=== PATIENT | male | born 1995 | race African-American/Black ===

== ENCOUNTER 2025-02-16 16:40 | Emergency (ER) | payer OTHER, SELFPAY ==
[2025-02-16 16:40] VITALS: BP 134/90; PULSE 87; RESP 18; TEMP 36.9; O2SAT 96; BMI 28.8
--- NOTE | 2025-02-16 16:57 | DI.RAD.S_ITS ---
PROCEDURE: XR CHEST 2V INDICATIONS: Shortness of breath TECHNIQUE: 2 views of the chest were acquired. COMPARISON: None. FINDINGS: Surgical changes and devices: None. Lungs and pleura: Lungs are clear. No pleural effusions or pneumothorax. Mediastinum: Mediastinal contours are normal. Heart size is normal. Bones and chest wall: No suspicious bony abnormalities. Soft tissues appear unremarkable. IMPRESSION: No acute cardiopulmonary abnormality is seen. Dictated by: Afshin Gonzales M.D. on 02/16/2025 at 17:29 Approved by: Afshin Gonzales M.D. on 02/16/2025 at 17:30
--- NOTE | 2025-02-16 17:10 | ED.URI ---
HPI - URI/Sore Throat <Cindy Blue PA-C - Last Filed: 02/16/25 19:22> General Chief Complaint: Upper Respiratory Symptoms Stated Complaint: thinks they have pna Time Seen by Provider: 02/16/25 16:56 Source: patient Mode of arrival: Ambulatory History of Present Illness HPI Narrative: Koko Ward is a very pleasant 29-year-old male, active [employer], with a past medical history of nephrotic syndrome since Aug 2024 who presents to the emergency department for cough x 1.5 weeks. 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 He is concerned that he is pneumonia now. States that about 1-1/2 weeks ago he had some fevers/chills and developed an extremely wet productive cough. Since then the cough has become more dry but he has frequent coughing episodes and has had no more fevers. This weekend he went to [place] for his mom's birthday and reports that he was feeling extremely fatigued and dehydrated. Patient states that he always feels somewhat short of breath and fatigued since being diagnosed with nephrotic syndrome but it has been much worse this last week. Denies any abdominal pain, nausea, vomiting, diarrhea, dysuria, hematuria, sore throat, ear pain. He took no OTCs. States he is on multiple meds for his nephrotic syndrome including furosemide, unable to list remaining. Related Data Previous Rx's Medication Instructions Recorded azithromycin 250 mg tablet See Rx Instructions PO .COMPLEX #6 02/16/25 tabs benzonatate 200 mg capsule 200 mg PO BID-TID PRN cough #20 02/16/25 caps Allergies Allergy/AdvReac Type Severity Reaction Status Date / Time No Known Drug Allergies Allergy Verified 02/16/25 17:36 Review of Systems <Cindy Blue PA-C - Last Filed: 02/16/25 19:22> Review of Systems ROS Unobtainable: All systems reviewed & are unremarkable except as noted in HPI and below Exam <Cindy Blue PA-C - Last Filed: 02/16/25 19:22> Narrative Exam Narrative: GENERAL: 29 year old male appears stated age. Well-developed patient, tall athletic, in no acute distress. HEAD: Atraumatic. Normocephalic. EYES: No scleral icterus. No injection or drainage. ENT: Nose without bleeding, purulent drainage. Throat without erythema, tonsillar hypertrophy or exudate. Airway patent. NECK: Trachea midline. Cervical ROM intact. CARDIOVASCULAR: Regular rate and rhythm. RESPIRATORY: ?Nonlabored respirations. ?Speaking in clear, full sentences. ?Coarse inspiratory breath sounds in left lower lobe, no wheezing. EXTREMITIES: No gross LE edema. NEURO: AOx3. ?Clear speech. ?Moves all 4 extremities appropriately. SKIN: No rash or erythema of visible areas Initial Vital Signs Initial Vital Signs: Vital Signs Temperature 98.5 F 02/16/25 16:40 Pulse Rate 87 02/16/25 16:40 Respiratory Rate 18 02/16/25 16:40 Blood Pressure 134/90 02/16/25 16:40 Pulse Oximetry 96 02/16/25 16:40 Oxygen Delivery Method Room Air 02/16/25 16:40 <Sheree Oates DO - Last Filed: 02/17/25 08:11> Initial Vital Signs Initial Vital Signs: Vital Signs Temperature 98.5 F 02/16/25 16:40 Pulse Rate 87 02/16/25 16:40 Respiratory Rate 18 02/16/25 16:40 Blood Pressure 134/90 02/16/25 16:40 Pulse Oximetry 96 02/16/25 16:40 Oxygen Delivery Method Room Air 02/16/25 16:40 Course <Cindy Blue PA-C - Last Filed: 02/16/25 19:22> Orders Ordered: Discontinued Medications Benzonatate (Benzonatate 100 Mg Capsule) 200 mg PO NOW ONE Stop: 02/16/25 17:10 Last Admin: 02/16/25 17:36 Dose: 200 mg Documented By: DENIS Vital Signs Vital signs: Vital Signs - 8 hr 02/16/25 16:40 02/16/25 18:45 Temperature 98.5 F 97.3 F L Pulse Rate 87 81 Respiratory Rate 18 16 Blood Pressure 134/90 141/95 H Pulse Oximetry 96 99 Oxygen Delivery Method Room Air <DO Jenna Pulido Last Filed: 02/17/25 08:11> Orders Ordered: Discontinued Medications Benzonatate (Benzonatate 100 Mg Capsule) 200 mg PO NOW ONE Stop: 02/16/25 17:10 Last Admin: 02/16/25 17:36 Dose: 200 mg Documented By: RB Vital Signs Vital signs: Vital Signs - 8 hr 02/16/25 16:40 02/16/25 18:45 Temperature 98.5 F 97.3 F L Pulse Rate 87 81 Respiratory Rate 18 16 Blood Pressure 134/90 141/95 H Pulse Oximetry 96 99 Oxygen Delivery Method Room Air MDM - URI/Sore Throat <Cindy Blue PA-C - Last Filed: 02/16/25 19:22> Medical Records Medical records narrative: None available for review Lab Data Labs: Lab Results 02/16/25 Range/Units 17:12 SARS-CoV-2 (PCR) Negative (Negative) Influenza A (RT-PCR) Flu a negative (NEGATIVE) Influenza B (RT-PCR) Flu b negative (NEGATIVE) RSV (PCR) Negative (Negative) Imaging Data Chest x-ray: Radiologist's Impression: PROCEDURE: XR CHEST 2V INDICATIONS: Shortness of breath TECHNIQUE: 2 views of the chest were acquired. COMPARISON: None. FINDINGS: Surgical changes and devices: None. Lungs and pleura: Lungs are clear. No pleural effusions or pneumothorax. Mediastinum: Mediastinal contours are normal. Heart size is normal. Bones and chest wall: No suspicious bony abnormalities. Soft tissues appear unremarkable. IMPRESSION: No acute cardiopulmonary abnormality is seen. Dictated by: Afshin Gonzales M.D. on 02/16/2025 at 17:29 Approved by: Afshin Gonzales M.D. on 02/16/2025 at 17:30 [facility] Narrative Medical decision making narrative: 29-year-old male, active [employer], with a past medical history of nephrotic syndrome since Aug 2024 who presents to the emergency department for cough x 1.5 weeks. Differential diagnosis includes but is not limited to viral syndrome, pneumonia, bronchitis, pleural effusion, etc. On exam the patient is in no acute distress, nontoxic-appearing, all vital signs within normal limits. He is very well-appearing, there is some coarse inspiratory breath sounds in the left lower lobe. He has a history of nephrotic syndrome however states that he is regular labs and is not having any changes in his urination, no increased edema. We will proceed with two-view chest x-ray, viral swab, treat cough with benzonatate. Viral swab negative. Chest x-ray reveals no pneumonia at this time. However patient does have some coarse breath sounds in the left lower lobe and a history of nephrotic syndrome which we can see immune system. Given this information, I did have a shared decision-making conversation with the patient or I discussed prescribing him azithromycin for atypical pneumonia but I do not recommend starting it at this time. I recommended that of the patient's symptoms improve he should hold off on antibiotics and assume this is viral in nature but if his symptoms do not get better or worsens next 48 hours should initiate the antibiotics. Patient did verbalize understanding however that if he gets much worse or has any concerns he should return to the emergency department immediately. He was also prescribed benzonatate to use if needed for cough. Advised supportive care rest, hydration, Tylenol, follow up with PCP. ED return precautions discussed. Patient verbalized understanding of all information and is agreeable to plan. He is stable for discharge home. <Sheree Oates DO - Last Filed: 02/17/25 08:11> Lab Data Labs: Lab Results 02/16/25 Range/Units 17:12 SARS-CoV-2 (PCR) Negative (Negative) Influenza A (RT-PCR) Flu a negative (NEGATIVE) Influenza B (RT-PCR) Flu b negative (NEGATIVE) RSV (PCR) Negative (Negative) Discharge Plan Departure Patient Disposition: Home Clinical Impression: Upper respiratory infection Qualifiers: URI type: unspecified URI Qualified Code(s): J06.9 - Acute upper respiratory infection, unspecified Instructions: DI for Viral Upper Respiratory Infection -- Adult Activity Restrictions/Additional Instructions: Dear Mr. Ward, Thank you for coming to the emergency department. Today you were evaluated for an upper respiratory infection/cough for the last 1-1/2 weeks. At this time your chest x-ray is clear and your viral swab was negative for COVID/flu/RSV. I would like you to rest, hydrate, use Tylenol if needed for aches and pains, and use the prescription cough medicine. If your symptoms do not get better in the next 48 hours, please start incomplete the prescribed antibiotics for atypical/walking pneumonia. However if your symptoms continue to get better, this infection is likely viral in nature and antibiotics will not help. Please, if your symptoms get much worse, you should come back to the emergency department. Please follow up with your primary care doctor within the next 2-3 days for ER follow-up. (If you do not have a PCP you can call [phone]. ?to schedule an appointment with an [facility] Primary Care Provider) IF YOU DEVELOP ANY NEW OR WORSENING SYMPTOMS, RETURN TO THE ER! Please read the attached instructions, they highlight more specific treatments and interventions for you at home. Thank you for letting me participate in your care, Cindy Blue PA-C Prescriptions: New benzonatate 200 mg capsule 200 mg PO BID-TID PRN (Reason: cough) Qty: 20 0RF azithromycin 250 mg tablet See Rx Instructions .ROUTE .COMPLEX Qty: 6 0RF Rx Instructions: For 250 mg dose pack: take 500 mg today (day 1), then 250 mg for 4 days (days 2-5) Referrals: ProviderNereyda [Primary Care Provider] - Stand Alone Forms: Patient Portal/API/Survey ED Sign-out <Sheree Oates DO - Last Filed: 02/17/25 08:11> Cosign ED Attending Cosignature Attestation: I was available for consultation.
[2025-02-16] MEDS: BENZONATATE 100 MG CAPSULE 200 MG PO (17:36)
[2025-02-16 18:02] LABS: Influenza A - CEPHEID Flu A NEGATIVE (NEGATIVE); Influenza B - CEPHEID Flu B NEGATIVE (NEGATIVE); Respiratory Syncytial Virus Negative (Negative)
[2025-02-16 18:12] LABS: COVID-19 CEPHEID 4-PLEX PCR Negative (Negative)
[2025-02-16 18:45] VITALS: BP 141/95; PULSE 81; RESP 16; TEMP 36.3; O2SAT 99
== END 2025-02-16 18:46 | disposition home or self-care (01) ==
PROVIDERS: Emergency Provider Physician Assistant
DX: J06.9 Acute upper respiratory infection, unspecified (principal); N04.9 Nephrotic syndrome with unspecified morphologic changes
CPT/HCPCS: 0241U; 71046; 99283

== ENCOUNTER 2025-03-12 23:38 | Emergency (ER) | payer OTHER, SELFPAY ==
[2025-03-13 00:01] VITALS: BP 148/91; PULSE 87; RESP 18; TEMP 36.5; O2SAT 98; BMI 28.3
--- NOTE | 2025-03-13 00:06 | DI.RAD.S_ITS ---
PROCEDURE: XR CHEST 1V INDICATIONS: Chest Pain TECHNIQUE: One view of the chest was acquired. COMPARISON: [facility], CR, XR CHEST 2V, 02/16/2025, 17:09. FINDINGS AND IMPRESSION: On this single view study, no airspace consolidation or pleural effusion is seen. Normal heart size. Unremarkable osseous structures. Dictated by: Frederick Ortiz M.D. on 03/13/2025 at 0:37 Approved by: Frederick Ortiz M.D. on 03/13/2025 at 0:37
--- NOTE | 2025-03-13 00:09 | EKG_ITS ---
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
--- NOTE | 2025-03-13 00:35 | ED.CHESTPAIN ---
HPI - Chest Pain General Chief Complaint: Chest Pain Stated Complaint: Palpitations, SOB Time Seen by Provider: 03/13/25 00:27 Source: patient Mode of arrival: Ambulatory History of Present Illness HPI narrative: 29-year-old male reports history of nephrotic syndrome, some form of congestive heart failure, for which he takes metolazone and Lasix, [facility], recent days has had exertional shortness of breath. Lower extremity edema present but responsive to his Lasix, denies any missed doses. Denies chest discomfort. Has occasional palpitations. No syncope or presyncope symptoms recent. Denies fevers or chills. Denies abdominal pain. Denies current chest pain. Related Data Previous Rx's ?Medication ?Instructions ?Recorded azithromycin 250 mg tablet See Rx Instructions PO .COMPLEX #6 02/16/25 tabs benzonatate 200 mg capsule 200 mg PO BID-TID PRN cough #20 02/16/25 caps potassium chloride 10 mEq 10 meq PO DAILY #10 caps 03/13/25 capsule,extended release Allergies Allergy/AdvReac Type Severity Reaction Status Date / Time No Known Drug Allergies Allergy Verified 02/16/25 17:36 Patient History Social History Smoking Status: Former smoker Smoking Status: Former smoker Exam Narrative Exam Narrative: GENERAL: Well-developed patient, in mild distress. HEAD: Atraumatic. Normocephalic. EYES: Pupils equal round and reactive. Extraocular motions intact. No scleral icterus. No injection or drainage. ENT: Nose without bleeding, purulent drainage. Throat without erythema, tonsillar hypertrophy or exudate. Airway patent. NECK: Trachea midline. Non tender CARDIOVASCULAR: Regular rate and rhythm without murmurs, gallops, or rubs. RESPIRATORY: Clear to auscultation. Breath sounds equal bilaterally. No wheezes, rales, or rhonchi. GASTROINTESTINAL: Abdomen soft, non-tender, nondistended. EXTREMITIES: No edema or joint tenderness. BACK: Nontender without deformity or crepitance. No flank tenderness. NEURO: AOx3. Motor functions grossly nonfocal SKIN: No rash or erythema of visible areas Initial Vital Signs Initial Vital Signs: Vital Signs Temperature 97.7 F 03/13/25 00:01 Pulse Rate 87 03/13/25 00:01 Respiratory Rate 18 03/13/25 00:01 Blood Pressure 148/91 H 03/13/25 00:01 Pulse Oximetry 98 03/13/25 00:01 Oxygen Delivery Method Room Air 03/13/25 00:01 Course Orders Ordered: ED Orders 03/13/25 00:06 XR chest 1V Stat EKG-12 Lead Stat 03/13/25 00:29 Complete Blood Count AUTO DIFF Stat Comprehensive Metabolic Panel Stat Lipase Stat Magnesium Stat NT-proBNP (BNP-Adult 18+) Stat PTT Partial Thromboplastin Elvis Stat Prothrombin Time INR Stat Troponin & CK Cardiac Panel Stat Discontinued Medications Aspirin (Aspirin 81 Mg Chew Tab) 324 mg PO NOW ONE Stop: 03/13/25 00:07 Last Admin: 03/13/25 00:38 Dose: Not Given Documented By: BRANNON Sodium Chloride (Normal Saline 0.9%) 1,000 mls @ 1,000 mls/hr IV BOLUS ONE Stop: 03/13/25 02:23 Last Admin: 03/13/25 01:51 Dose: 1,000 mls/hr Documented By: BRANNON POTASSIUM CHLORIDE IN WATER (Potassium Cl 10 Meq/100 Ml Hayley) 10 meq in 100 mls @ 100 mls/hr IV Q1H FREDDY Stop: 03/13/25 03:29 Last Admin: 03/13/25 02:41 Dose: 100 mls/hr Documented By: Infusion: 03/13/25 02:41 Dose: Infused Documented By: Admin: 03/13/25 01:52 Dose: 100 mls/hr Documented By: BRANNON Potassium Chloride (Potassium Chloride 20 Meq/15 Ml Udc) 40 meq PO NOW ONE Stop: 03/13/25 01:25 Last Admin: 03/13/25 01:51 Dose: 40 meq Documented By: BRANNON Vital Signs Vital signs: Vital Signs - 8 hr 03/13/25 00:01 03/13/25 00:42 03/13/25 00:42 Temperature 97.7 F Pulse Rate 87 79 Respiratory Rate 18 15 Blood Pressure 148/91 H 139/86 Pulse Oximetry 98 98 Oxygen Delivery Method Room Air 03/13/25 01:00 03/13/25 01:00 Temperature Pulse Rate 77 Respiratory Rate 13 Blood Pressure 144/85 H Pulse Oximetry 97 Oxygen Delivery Method MDM - Chest Pain Lab Data Attestation: I reviewed the patient's lab results. Lab results narrative: White blood cell count 8900, hemoglobin 13.6, platelets adequate. Glucose 95. BUN 20 with creatinine 1.51 noted. Sodium 131 low, potassium level 3.1 low. Serum CO2 38. CPK 1065 elevated. Liver functions and lipase normal. Troponin negative. 03/13/25 00:29 03/13/25 00:29 Labs: Lab Results 03/13/25 Range/Units 00:29 WBC 8.9 (4.5-11.0) X10^3/uL RBC 4.46 L (4.5-5.9) X10^6/uL Hgb 13.6 (13.5-17.5) g/dL Hct 38.1 L (41-53) % MCV 85.4 (80-100) fL MCH 30.6 (26-34) PG MCHC 35.8 (30-36) % RDW 13.0 (11.6-14.8) % Plt Count 384 (150-400) X10^3/uL Neut % (Auto) 72.9 (50-75) % Lymph % (Auto) 18.5 L (25-40) % [place] % (Auto) 6.0 (3-14) % Eos % (Auto) 1.8 L (2-4) % Baso % (Auto) 0.8 (0-2) % Neut # (Auto) 6500 (1437-1025) /uL Lymph # (Auto) 1700 (7171-9567) /uL [place] # (Auto) 500 (0-900) /uL Eos # (Auto) 200 (0-450) /uL Baso # (Auto) 100 (0-100) /uL PT 10.0 (9.4-12.5) SECONDS INR 0.9 (0.9-1.3) APTT 36 (25.1-36.5) SECONDS Sodium 131 L (137-145) mmol/L Potassium 3.1 L (3.4-5.1) mmol/L Chloride 97 L (98-107) mmol/L Carbon Dioxide 38 H (22-32) mmol/L BUN 20 (9-20) mg/dL Creatinine 1.51 H (0.66-1.25) mg/dL Estimated GFR > 60 (>60) mL/min BUN/Creatinine Ratio 13.2 (6-22) Glucose 95 (70-99) mg/dL Calcium 7.3 L (8.4-10.2) mg/dL Magnesium 2.1 (1.6-2.3) mg/dL Total Bilirubin 0.2 (0.2-1.3) mg/dL AST 56 (17-59) IU/L ALT 26 (<50) IU/L Alkaline Phosphatase 66 (38-126) U/L Total Creatine Kinase 1065 H (55-170) U/L Troponin I < 0.012 (0.01-0.034) ng/mL NT-Pro-B Natriuret Pep 43 (<125) pg/mL Total Protein 4.7 L (6.3-8.2) g/dL Albumin 2.0 L (3.5-5.0) g/dL Globulin 2.7 (1.7-4.1) g/dL Albumin/Globulin Ratio 0.7 L (1.0-2.8) Lipase 108 (23-300) U/L Imaging Data Chest x-ray: Radiologist's Impression: [address] [address] XRay Report Signed Patient: Koko Ward MR#: [id number] : 1995 Acct:[id number] Age/Sex: 29 / M Date of Service: 03/13/25 Loc: ED Accession Number: [id number] Procedure: XR chest 1V Ordering Provider: Antione Dubose MD PROCEDURE: XR CHEST 1V INDICATIONS: Chest Pain TECHNIQUE: One view of the chest was acquired. COMPARISON: [facility], , XR CHEST 2V, 02/16/2025, 17:09. FINDINGS AND IMPRESSION: On this single view study, no airspace consolidation or pleural effusion is seen. Normal heart size. Unremarkable osseous structures. Dictated by: Frederick Ortiz M.D. on 03/13/2025 at 0:37 Approved by: Frederick Ortiz M.D. on 03/13/2025 at 0:37 ECG Data Attestation: I personally reviewed and interpreted this ECG as follows: Interpretation: Normal sinus rhythm with rate 75, no obvious ST segment elevation or depression changes. WI 144, QRS 96, QTC 460. MDM Narrative Medical decision making narrative: 29-year-old male reports history of nephrotic syndrome and renal insufficiency, not on dialysis, [facility], taking metolazone and furosemide, recent shortness of breath with exertion. Screening EKG unremarkable. Other labs pending. White blood cell count normal, hemoglobin normal. Renal function slight abnormal only. Low sodium noted. Low potassium noted. CPK quite elevated 1000 range noted. BNP not elevated. Troponin negative. IV fluid bolus. Oral potassium repletion. Chest x-ray without fluid overload changes. Patient advised to follow up with his PCP for repeat CPK, creatinine, potassium, sodium early this next week. Discharge Plan Departure Patient Disposition: Home Clinical Impression: Exertional shortness of breath, Hypokalemia, Rhabdomyolysis, Hyponatremia, History of nephrotic syndrome Instructions: DI for Hypokalemia, DI for Shortness of Breath, DI for Rhabdomyolysis Activity Restrictions/Additional Instructions: Shortness of breath and fatigue with exercise. History of nephrotic syndrome. History of heart problems. EKG and blood testing not suggestive of heart attack at this time. You did have significant to light abnormalities, with a markedly low potassium, and a mildly low sodium level. IV and oral potassium prescribed, also a prescription for potassium to take as a supplement daily. Recheck potassium level in follow up with your regular doctor in the next few days. Recheck sodium level in follow up as well. Your CPK was elevated, possible rhabdomyolysis of unclear cause. You are not taking any new medications, did not take any exercise supplements or dietary supplements. Unclear cause of the CPK blood tests elevation. IV fluids were given. Consider repeat blood level CPK in follow up. Your kidney function today was actually quite good. Chest x-ray not suggestive of fluid overload. Nor was your BNP blood test, which was normal range and not elevated, not suspicious for congestive heart failure at this time. Further workup as an outpatient for now. 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 This might include things like pulmonary function testing, exercise stress testing, echocardiogram, other testing. Return earlier to this/nearest emergency department for any change worsening symptoms or any concerns prior. Prescriptions: New potassium chloride 10 mEq capsule, extended release 10 meq PO DAILY Qty: 10 0RF No Action benzonatate 200 mg capsule 200 mg PO BID-TID PRN (Reason: cough) Qty: 20 0RF azithromycin 250 mg tablet See Rx Instructions .ROUTE .COMPLEX Qty: 6 0RF Rx Instructions: For 250 mg dose pack: take 500 mg today (day 1), then 250 mg for 4 days (days 2-5) Referrals: ProviderNereyda [Primary Care Provider] Stand Alone Forms: Patient Portal/API/Survey
[2025-03-13 00:36] LABS: Add Manual Diff / Slide Review NO; Basophils Absolute Auto 100 /uL (0-100); Basophils Percent Auto 0.8 % (0-2); Eosinophils Absolute Auto 200 /uL (0-450); Eosinophils Percent Auto 1.8 % (2-4); Hematocrit 38.1 % (41-53); Hemoglobin 13.6 g/dL (13.5-17.5); Lymphocytes Absolute Auto 1700 /uL (1100-4500); Lymphocytes Percent Auto 18.5 % (25-40); Mean Corpuscular HGB Conc 35.8 % (30-36); Mean Corpuscular Hemoglobin 30.6 PG (26-34); Mean Corpuscular Volume 85.4 fL (80-100); Monocytes Absolute Auto 500 /uL (0-900); Neutrophils Absolute Auto 6500 /uL (1500-7000); Neutrophils Percent Auto 72.9 % (50-75); Platelet Count 384 X10^3/uL (150-400); Red Blood Cell Count 4.46 X10^6/uL (4.5-5.9); White Blood Cell Count 8.9 X10^3/uL (4.5-11.0)
[2025-03-13 00:42] VITALS: BP 139/86; PULSE 79; RESP 15; O2SAT 98
[2025-03-13 00:44] LABS: INR 0.9 (0.9-1.3)
[2025-03-13 00:46] LABS: PTT Partial Thromboplastin Tim 36 SECONDS (25.1-36.5)
[2025-03-13 00:56] LABS: Alanine Aminotransferase 26 IU/L (<50); Albumin Globulin Ratio 0.7 (1.0-2.8); Alkaline Phosphatase 66 U/L (38-126); Aspartate Aminotransferase 56 IU/L (17-59); BUN Creatinine Ratio 13.2 (6-22); Bilirubin Total 0.2 mg/dL (0.2-1.3); Blood Urea Nitrogen 20 mg/dL (9-20); Calcium 7.3 mg/dL (8.4-10.2); Carbon Dioxide 38 mmol/L (22-32); Chloride 97 mmol/L (98-107); Creatine Kinase 1065 U/L (55-170); Estimated Glomerular Filt Rate > 60 mL/min (>60); Globulin 2.7 g/dL (1.7-4.1); Glucose 95 mg/dL (70-99); HEMOLYSIS < 15 (0-50); Lipase 108 U/L (23-300); Magnesium 2.1 mg/dL (1.6-2.3); Potassium 3.1 mmol/L (3.4-5.1); Sodium 131 mmol/L (137-145); Total Protein 4.7 g/dL (6.3-8.2)
[2025-03-13 01:00] VITALS: BP 144/85; PULSE 77; RESP 13; O2SAT 97
[2025-03-13 01:07] LABS: NT-proBNP (BNP-Adult 18+) 43 pg/mL (<125); Troponin I < 0.012 ng/mL (0.01-0.034)
[2025-03-13] MEDS: SODIUM CHLORIDE 0.9% 1,000 ML 1000 ML IV (01:51)
[2025-03-13] MEDS: POTASSIUM CHLORIDE 20 MEQ/15 ML UDC 40 MEQ PO (01:51)
[2025-03-13] MEDS: POTASSIUM CHLORIDE IN WATER 10 MEQ/100 ML PIGGYBACK 100 MEQ IV ×2 (01:52→02:41)
== END 2025-03-13 07:30 | disposition home or self-care (01) ==
PROVIDERS: Emergency Provider Emergency Medicine
DX: R06.02 Shortness of breath (principal); E87.6 Hypokalemia; M62.82 Rhabdomyolysis; E87.1 Hypo-osmolality and hyponatremia; Z87.448 Personal history of other diseases of urinary system; Z86.79 Personal history of other diseases of the circulatory system; Z87.891 Personal history of nicotine dependence
CPT/HCPCS: 36415; 71045; 80053; 82550; 83690; 83735; 83880; 84484; 85025; 85610; 85730; 93005; 96365; 99284